=== PATIENT | female | born 1995 | race Caucasian/White ===

== ENCOUNTER 2019-02-28 18:09 | Emergency (ER) | payer OTHER ==
[~2019-02-28] VITALS: Ht 162.6 cm; Wt 52.6 kg
== END 2019-02-28 21:40 | disposition home or self-care (01) ==
LOC: ER 18:09
DX: R42 Dizziness and giddiness (principal)

== ENCOUNTER → 2019-08-18 | Emergency (ER) | payer OTHER ==
[~2019-08-18] VITALS: Ht 162.6 cm; Wt 48.5 kg
[~2019-08-18] MED LIST: PYRIDIUM100 M1 PO
== END | disposition home or self-care (01) ==
LOC: ER 00:53
DX: N39.0 Urinary tract infection, site not specified (principal)

== ENCOUNTER 2022-01-18 01:24 | Emergency (ER) | payer OTHER ==
[~2022-01-18] VITALS: Ht 162.6 cm; Wt 63.5 kg
[2022-01-18] MEDS ORDERED: LEVOFLOXACIN500 MG PO (05:34)
[2022-01-18] MEDS ORDERED: DICLOFENAC POTA50 MG PO (05:34)
== END 2022-01-18 05:58 | disposition home or self-care (01) ==
LOC: ER 01:24
DX: N39.0 Urinary tract infection, site not specified (principal); R10.2 Pelvic and perineal pain; K59.00 Constipation, unspecified

== ENCOUNTER 2024-07-21 08:06 | Emergency (ER) | payer OTHER ==
[~2024-07-21] VITALS: Ht 160 cm; Wt 65.8 kg
[~2024-07-21 08:06] MED LIST changes: +ADULT ASPIRIN81 MG PO; +DICLOFENAC POTA50 MG PO; +LEVOFLOXACIN500 MG PO; +PRENATAL TABLE1 EAC4 PO; +Procardia Xl 30MG TA PO
[2024-07-21] MEDS ORDERED: ACETAMINOPHEN500 M1 PO (11:03)
== END 2024-07-21 11:08 | disposition home or self-care (01) ==
LOC: ER 08:09
DX: O91.23 Nonpurulent mastitis associated with lactation (principal)

== ENCOUNTER 2025-03-23 09:19 | Emergency (ER) | payer OTHER ==
[~2025-03-23] VITALS: Ht 165.1 cm; Wt 77.1 kg
[~2025-03-23 09:19] MED LIST changes: +ACETAMINOPHEN500 M1 PO
[2025-03-23] MEDS ORDERED: 0.9 % SODIUM CHLORIDE 1,000 ML IV SCH (10:00)
[2025-03-23] MEDS ORDERED: ONDANSETRON HCL 2 MG/ML VIAL IV ONE (10:00)
[2025-03-23] MEDS ORDERED: FAMOtidine 10 MG/ML (4ML VIAL) IV PUSH ONE (10:00)
[2025-03-23] MEDS ORDERED: ONDANSETRON HCL 2 MG/ML VIAL ONE (10:08)
[2025-03-23] MEDS ORDERED: FAMOTIDINE/PF 20 MG/2 ML VIAL ONE (10:09)
[2025-03-23 11:52] LABS: ALT/SGPT 29.0 U/L (12-78); AST/SGOT 18.0 U/L (15-37); BILIRUBIN TOTAL 0.39 mg/dL (0.3-1.2); BUN CREA RATIO 19.0 (7.0-25.0); CREATININE SERUM 0.7 mg/dL (0.55-1.02); GFR 98.93; GLOBULINA 4.7 G/DL (2.4-3.5); GLUCOSE FASTING 120.0 mg/dL (65-100); OSMOLALITY SERUM 283.0 MOSM/KG (275-295)
[2025-03-23 12:03] LABS: BASO % 0.1 % (0.1-1.2); EOS # 0.03 (0.04-0.54); EOS % 0.3 % (0.7-7.0); LYMPH # 0.28 (1.18-3.74); LYMPH % 2.6 % (19.3-53.1); MEAN PLATELET VOLUME 10.30 fl (9.4-12.4); MONO # 0.34 (0.24-0.82); MONO % 3.1 % (4.7-12.5); NEUT # 10.25 (1.56-6.13); NEUT % 93.7 % (34.0-71.1); RED CELL DISTRIBUTION WIDTH 12.8 % (11.6-14.4)
[2025-03-23] MEDS ORDERED: PROBIOTIC1 EAC2 PO (14:44)
[2025-03-23] MEDS ORDERED: ZOFRAN8 MG PO (14:44)
[2025-03-23] MEDS ORDERED: PEPCID AC20 MG PO (14:44)
[2025-03-23] MEDS ORDERED: CIPRO500 MG PO (14:44)
[2025-03-23] MEDS ORDERED: METRONIDAZOLE500 MG PO (14:44)
== END 2025-03-23 15:57 | disposition home or self-care (01) ==
LOC: ER 09:19
PROVIDERS: General Practice
DX: K29.70 Gastritis, unspecified, without bleeding (principal); A09 Infectious gastroenteritis and colitis, unspecified; R10.9 Unspecified abdominal pain